=== PATIENT | male | born 1950 | race Caucasian/White ===

== ENCOUNTER 2017-12-14 13:25 | Inpatient (IN) ==
[2017-12-14 16:58] LABS: Basophils # 0.1 10*3/uL (0.0-0.2); Basophils % 0.7 % (0.0-0.8); Eosinophils # 0.6 10*3/uL (0.0-0.87); Eosinophils % 8.6 % (0.00-10.9); Hematocrit 38.8 VOL% (42.0-52.0); Hemoglobin 12.8 GM/DL (14.0-18.0); Immature Granulocytes % 0.1 %; Immature Granulocytes Absolute 0.01 #; Lymphocytes # 2.2 10*3/uL (1.4-4.0); Mean Corpuscular Hemoglobin 31 PG (27-34); Mean Corpuscular Volume 95.1 FL (87-102); Mean Platelet Volume 10.8 FL (9.6-12.0); Monocytes # 0.8 10*3/uL (0.11-0.8); Monocytes % 12.1 % (1.7-12.7); Neutrophils # 3.2 10*3/uL (1.4-7.4); Neutrophils % 46.5 % (38.7-73.9); Platelet Count 195 T/CUMM (130-400); Red Blood Count 4.08 MC/CUMM (3.8-5.5); Red Cell Distribution Width 13.5 % (9.3-17.3); White Blood Count 6.9 T/CUMM (4-12)
[2017-12-14 17:25] LABS: Albumin 3.1 G/DL (3.4-5.0); Bilirubin,Total 0.6 MG/DL (0.2-1.0); Calcium 7.5 MG/DL (8.5-10.1); Osmolality,Calculated 284.1 MOS/KG (273-304); Potassium 3.8 MMOL/L (3.5-5.1); Total Protein 6.9 G/DL (6.4-8.3)
[2017-12-14 17:46] LABS: PT Patient Result 10.7 SECS; Partial Thromboplastin Time 25.9 SECS (0-40)
[2017-12-14] MEDS ORDERED: POT IV SCH (18:30)
[2017-12-14] MEDS ORDERED: [UNRECOGNIZED DRUG - OTHER] IV SCH (18:30)
[2017-12-14] MEDS: PANTOPRAZOLE 40 MG VIAL IV SCH (20:39)
[2017-12-14] MEDS: ATORVASTATIN 20 MG TABLET PO SCH (20:39)
[2017-12-14] MEDS: LINEZOLID 600 MG TABLET PO SCH (20:39)
[2017-12-14] MEDS: POTASSIUM CHLORIDE 20 MEQ TABLET PO SCH (20:39)
[2017-12-14] MEDS: PENICILLIN G POTASSIUM INJ 2,000,000 UNIT in SODIUM CHLORIDE 0.9% 100 ML IV SCH (20:40)
[2017-12-14] MEDS ORDERED: DONEPEZIL 5 MG TABLET PO SCH (21:00)
[2017-12-14 21:11] LABS: Hematocrit 36.5 VOL% (42.0-52.0)
[2017-12-15] MEDS: PENICILLIN G POTASSIUM INJ 2,000,000 UNIT in SODIUM CHLORIDE 0.9% 100 ML IV SCH ×6 (00:59→21:55)
[2017-12-15 01:40] LABS: Basophils # 0.1 10*3/uL (0.0-0.2); Basophils % 0.9 % (0.0-0.8); Eosinophils # 0.5 10*3/uL (0.0-0.87); Eosinophils % 8.8 % (0.00-10.9); Hematocrit 34.7 VOL% (42.0-52.0); Hemoglobin 11.5 GM/DL (14.0-18.0); Immature Granulocytes % 0.2 %; Immature Granulocytes Absolute 0.01 #; Lymphocytes # 1.9 10*3/uL (1.4-4.0); Lymphocytes % 33.3 % (21.2-54.2); Mean Corpuscular HGB Conc 33.1 GM/DL (32-36); Mean Corpuscular Hemoglobin 31 PG (27-34); Mean Corpuscular Volume 94.3 FL (87-102); Mean Platelet Volume 10.5 FL (9.6-12.0); Monocytes # 0.7 10*3/uL (0.11-0.8); Monocytes % 12.3 % (1.7-12.7); Neutrophils # 2.6 10*3/uL (1.4-7.4); Neutrophils % 44.5 % (38.7-73.9); Platelet Count 167 T/CUMM (130-400); Red Blood Count 3.68 MC/CUMM (3.8-5.5); Red Cell Distribution Width 13.5 % (9.3-17.3); White Blood Count 5.7 T/CUMM (4-12)
[2017-12-15 01:41] LABS: Hematocrit 34.5 VOL% (42.0-52.0); Hemoglobin 11.4 GM/DL (14.0-18.0)
[2017-12-15 02:03] LABS: Albumin 2.8 G/DL (3.4-5.0); Bilirubin,Total 0.6 MG/DL (0.2-1.0); Calcium 8.5 MG/DL (8.5-10.1); Osmolality,Calculated 283.1 MOS/KG (273-304); Potassium 3.8 MMOL/L (3.5-5.1)
[2017-12-15 07:51] LABS: Hematocrit 36.9 VOL% (42.0-52.0); Hemoglobin 11.9 GM/DL (14.0-18.0)
[2017-12-15] MEDS: LINEZOLID 600 MG TABLET PO SCH ×2 (10:03→21:55)
[2017-12-15] MEDS: METOPROLOL SUCCINATE XL 25 MG TABLET PO SCH (10:03)
[2017-12-15] MEDS: POTASSIUM CHLORIDE 20 MEQ TABLET PO SCH ×2 (10:04→21:55)
[2017-12-15] MEDS: LOSARTAN 50 MG TABLET PO SCH (10:05)
[2017-12-15] MEDS: FUROSEMIDE 40 MG TABLET PO SCH ×2 (10:06→17:19)
[2017-12-15] MEDS: DILTIAZEM CD 240 MG CAPSULE PO SCH (10:12)
[2017-12-15] MEDS: PANTOPRAZOLE 40 MG VIAL IV SCH ×2 (10:12→21:54)
[2017-12-15] MEDS: PREGABALIN 100 MG CAPSULE PO SCH ×2 (13:00→21:55)
[2017-12-15 13:44] LABS: Hematocrit 36.5 VOL% (42.0-52.0)
[2017-12-15 20:02] LABS: Hematocrit 34.8 VOL% (42.0-52.0); Hemoglobin 11.6 GM/DL (14.0-18.0)
[2017-12-15] MEDS: DONEPEZIL 5 MG TABLET PO SCH (21:55)
[2017-12-15] MEDS: ATORVASTATIN 20 MG TABLET PO SCH (21:55)
[2017-12-16] MEDS: PENICILLIN G POTASSIUM INJ 2,000,000 UNIT in SODIUM CHLORIDE 0.9% 100 ML IV SCH ×7 (01:39→21:34)
[2017-12-16 01:54] LABS: Hematocrit 33.9 VOL% (42.0-52.0); Hemoglobin 11.2 GM/DL (14.0-18.0)
[2017-12-16 03:33] LABS: Calcium 8.3 MG/DL (8.5-10.1)
[2017-12-16 03:34] LABS: Albumin 2.8 G/DL (3.4-5.0); Bilirubin,Total 0.5 MG/DL (0.2-1.0); Osmolality,Calculated 285.1 MOS/KG (273-304); Potassium 3.8 MMOL/L (3.5-5.1); Total Protein 5.9 G/DL (6.4-8.3)
[2017-12-16 05:46] LABS: Basophils # 0.1 10*3/uL (0.0-0.2); Basophils % 0.9 % (0.0-0.8); Eosinophils # 0.4 10*3/uL (0.0-0.87); Eosinophils % 7.4 % (0.00-10.9); Hematocrit 36.6 VOL% (42.0-52.0); Hemoglobin 11.5 GM/DL (14.0-18.0); Immature Granulocytes % 0.2 %; Immature Granulocytes Absolute 0.01 #; Lymphocytes # 1.4 10*3/uL (1.4-4.0); Lymphocytes % 24.6 % (21.2-54.2); Mean Corpuscular HGB Conc 31.4 GM/DL (32-36); Mean Corpuscular Hemoglobin 30 PG (27-34); Mean Corpuscular Volume 95.3 FL (87-102); Mean Platelet Volume 10.9 FL (9.6-12.0); Monocytes # 0.6 10*3/uL (0.11-0.8); Neutrophils # 3.2 10*3/uL (1.4-7.4); Neutrophils % 55.9 % (38.7-73.9); Platelet Count 176 T/CUMM (130-400); Red Blood Count 3.84 MC/CUMM (3.8-5.5); Red Cell Distribution Width 13.3 % (9.3-17.3); White Blood Count 5.7 T/CUMM (4-12)
[2017-12-16] MEDS ORDERED: PROPOFOL 200 MG/20 ML VIAL IV ONE (10:00)
[2017-12-16] MEDS ORDERED: LIDOCAINE 100 MG/5 ML SYRINGE ONE (10:00)
[2017-12-16] MEDS: DILTIAZEM CD 240 MG CAPSULE PO SCH (11:23)
[2017-12-16] MEDS: METOPROLOL SUCCINATE XL 25 MG TABLET PO SCH (11:23)
[2017-12-16] MEDS: PANTOPRAZOLE 40 MG VIAL IV SCH ×2 (11:24→21:30)
[2017-12-16] MEDS: LINEZOLID 600 MG TABLET PO SCH ×2 (11:25→21:51)
[2017-12-16] MEDS: POTASSIUM CHLORIDE 20 MEQ TABLET PO SCH ×2 (11:25→21:28)
[2017-12-16] MEDS: PREGABALIN 100 MG CAPSULE PO SCH ×2 (11:25→21:28)
[2017-12-16] MEDS: LOSARTAN 50 MG TABLET PO SCH (11:25)
[2017-12-16] MEDS: FUROSEMIDE 40 MG TABLET PO SCH ×2 (11:25→15:37)
[2017-12-16] MEDS ORDERED: BISACODYL 5 MG TABLET PO ONE (12:00)
[2017-12-16] MEDS ORDERED: POLYETHYLENE GLYCOL POWDER 255 GM BOTTLE PO ONE (18:00)
[2017-12-16] MEDS: ATORVASTATIN 20 MG TABLET PO SCH (21:28)
[2017-12-16] MEDS: DONEPEZIL 5 MG TABLET PO SCH (21:28)
[2017-12-17] MEDS: PENICILLIN G POTASSIUM INJ 2,000,000 UNIT in SODIUM CHLORIDE 0.9% 100 ML IV SCH ×6 (01:20→20:52)
[2017-12-17 05:49] LABS: Basophils % 0.7 % (0.0-0.8); Eosinophils # 0.4 10*3/uL (0.0-0.87); Eosinophils % 6.2 % (0.00-10.9); Hematocrit 37.9 VOL% (42.0-52.0); Hemoglobin 11.8 GM/DL (14.0-18.0); Immature Granulocytes % 0.2 %; Immature Granulocytes Absolute 0.01 #; Lymphocytes # 1.5 10*3/uL (1.4-4.0); Mean Corpuscular HGB Conc 31.1 GM/DL (32-36); Mean Corpuscular Hemoglobin 30 PG (27-34); Mean Corpuscular Volume 95.2 FL (87-102); Mean Platelet Volume 10.9 FL (9.6-12.0); Monocytes # 0.6 10*3/uL (0.11-0.8); Monocytes % 10.5 % (1.7-12.7); Neutrophils # 3.1 10*3/uL (1.4-7.4); Neutrophils % 55.4 % (38.7-73.9); Platelet Count 164 T/CUMM (130-400); Red Blood Count 3.98 MC/CUMM (3.8-5.5); Red Cell Distribution Width 13.3 % (9.3-17.3); White Blood Count 5.6 T/CUMM (4-12)
[2017-12-17 06:08] LABS: Bilirubin,Total 0.7 MG/DL (0.2-1.0); Calcium 8.9 MG/DL (8.5-10.1); Osmolality,Calculated 284.1 MOS/KG (273-304); Potassium 4.4 MMOL/L (3.5-5.1); Total Protein 6.6 G/DL (6.4-8.3)
[2017-12-17] MEDS ORDERED: LIDOCAINE 100 MG/5 ML SYRINGE ONE (08:00)
[2017-12-17] MEDS ORDERED: PROPOFOL 200 MG/20 ML VIAL IV ONE (08:00)
[2017-12-17] MEDS ORDERED: MAGNESIUM CITRATE 300 ML BOTTLE PO ONE (12:32)
[2017-12-17] MEDS: PANTOPRAZOLE 40 MG VIAL IV SCH ×2 (13:24→20:50)
[2017-12-17] MEDS: DILTIAZEM CD 240 MG CAPSULE PO SCH (13:25)
[2017-12-17] MEDS: PREGABALIN 100 MG CAPSULE PO SCH ×2 (13:25→20:49)
[2017-12-17] MEDS: POTASSIUM CHLORIDE 20 MEQ TABLET PO SCH ×2 (13:26→20:50)
[2017-12-17] MEDS: METOPROLOL SUCCINATE XL 25 MG TABLET PO SCH (13:26)
[2017-12-17] MEDS: FUROSEMIDE 40 MG TABLET PO SCH ×2 (13:26→18:13)
[2017-12-17] MEDS: LOSARTAN 50 MG TABLET PO SCH (13:26)
[2017-12-17] MEDS: LINEZOLID 600 MG TABLET PO SCH ×2 (13:29→20:50)
[2017-12-17] MEDS: ATORVASTATIN 20 MG TABLET PO SCH (20:49)
[2017-12-17] MEDS: DONEPEZIL 5 MG TABLET PO SCH (20:50)
[2017-12-18] MEDS: PENICILLIN G POTASSIUM INJ 2,000,000 UNIT in SODIUM CHLORIDE 0.9% 100 ML IV SCH ×4 (01:17→12:31)
[2017-12-18] MEDS: POTASSIUM CHLORIDE 20 MEQ TABLET PO SCH (09:12)
[2017-12-18] MEDS: FUROSEMIDE 40 MG TABLET PO SCH ×2 (09:12→15:15)
[2017-12-18] MEDS: DILTIAZEM CD 240 MG CAPSULE PO SCH (09:12)
[2017-12-18] MEDS: LOSARTAN 50 MG TABLET PO SCH (09:12)
[2017-12-18] MEDS: PREGABALIN 100 MG CAPSULE PO SCH (09:12)
[2017-12-18] MEDS: LINEZOLID 600 MG TABLET PO SCH (09:13)
[2017-12-18] MEDS: METOPROLOL SUCCINATE XL 25 MG TABLET PO SCH (09:13)
[2017-12-18] MEDS: PANTOPRAZOLE 40 MG VIAL IV SCH (09:15)
[2017-12-18 11:31] VITALS: BP 100/60
== END 2017-12-18 15:35 | disposition home health service (06) | DRG 378 ==
LOC: N.ED 13:25 → N.EDINP 17:19 → SUATTDRO 17:19 → N.5E 18:15 → N.TELEN 22:49
PROVIDERS: ADMIT Internal Medicine; ATTEND Hospitalist

== ENCOUNTER 2019-07-29 12:47 | Observation (INO) ==
[2019-07-29 13:29] LABS: Basophils # 0.1 10*3/uL (0.0-0.2); Eosinophils # 0.4 10*3/uL (0.0-0.87); Eosinophils % 6.1 % (0.00-10.9); Hematocrit 45.2 VOL% (42.0-52.0); Hemoglobin 14.9 GM/DL (14.0-18.0); Immature Granulocytes % 0.2 %; Immature Granulocytes Absolute 0.01 #; Lymphocytes # 1.4 10*3/uL (1.4-4.0); Lymphocytes % 23.5 % (21.2-54.2); Mean Platelet Volume 10.4 FL (9.6-12.0); Monocytes % 13.7 % (1.7-12.7); Neutrophils % 55.5 % (38.7-73.9); Platelet Count 194 T/CUMM (130-400); Red Blood Count 4.81 MC/CUMM (3.8-5.5); Red Cell Distribution Width 13.1 % (9.3-17.3); White Blood Count 5.9 T/CUMM (4-12)
[2019-07-29 13:41] LABS: PT Patient Result 10.3 SECS (9.8-11.9)
[2019-07-29 13:43] LABS: Albumin 3.6 G/DL (3.4-5.0); Bilirubin,Total 0.6 MG/DL (0.2-1.0); Total Protein 7.1 G/DL (6.4-8.3)
[2019-07-29] MEDS ORDERED: ONDANSETRON 4 MG/2 ML VIAL IV PRN (15:10)
[2019-07-29] MEDS ORDERED: hydrALAZINE 20 MG/1 ML VIAL IV PRN (15:10)
[2019-07-29] MEDS ORDERED: GLUCAGON 1 MG VIAL IM PRN (15:10)
[2019-07-29] MEDS ORDERED: ACETAMINOPHEN 325 MG TABLET PO PRN (15:10)
[2019-07-29] MEDS ORDERED: DOCUSATE SODIUM 100 MG CAPSULE PO PRN (15:10)
[2019-07-29] MEDS ORDERED: DEXTROSE 50% 25 GM/50 ML VIAL IV PRN (15:10)
[2019-07-29] MEDS ORDERED: ENOXAPARIN 40 MG/0.4 ML SYRINGE SUBCUT SCH (15:30)
[2019-07-29 16:11] LABS: Risk Ratio 3.45; Thyroid Stimulating Hormone 3.87 uIU/ml (0.358-3.74); VLDL CHOLESTEROL 36.2 MG/DL
[2019-07-29] MEDS: PREGABALIN 100 MG CAPSULE PO SCH (20:52)
[2019-07-29] MEDS ORDERED: ATORVASTATIN 20 MG TABLET PO SCH (21:00)
[2019-07-29] MEDS ORDERED: DONEPEZIL 10 MG TABLET PO SCH (21:00)
[2019-07-30 05:22] LABS: Basophils # 0.1 10*3/uL (0.0-0.2); Basophils % 0.9 % (0.0-0.8); Eosinophils # 0.4 10*3/uL (0.0-0.87); Hematocrit 42.5 VOL% (42.0-52.0); Hemoglobin 13.9 GM/DL (14.0-18.0); Immature Granulocytes % 0.2 %; Immature Granulocytes Absolute 0.01 #; Lymphocytes # 1.7 10*3/uL (1.4-4.0); Lymphocytes % 27.2 % (21.2-54.2); Mean Corpuscular HGB Conc 32.7 GM/DL (32-36); Mean Corpuscular Volume 93.8 FL (87-102); Mean Platelet Volume 10.7 FL (9.6-12.0); Monocytes % 12.9 % (1.7-12.7); Neutrophils % 52.8 % (38.7-73.9); Platelet Count 188 T/CUMM (130-400); Red Blood Count 4.53 MC/CUMM (3.8-5.5); Red Cell Distribution Width 13.2 % (9.3-17.3); White Blood Count 6.4 T/CUMM (4-12)
[2019-07-30 06:05] LABS: Osmolality,Calculated 275.7 MOS/KG (273-304)
[2019-07-30] MEDS ORDERED: DILTIAZEM CD 180 MG CAPSULE PO SCH (09:00)
[2019-07-30] MEDS ORDERED: LOSARTAN 50 MG TABLET PO SCH (09:00)
[2019-07-30] MEDS: PREGABALIN 100 MG CAPSULE PO SCH (09:12)
[2019-07-30 12:10] VITALS: BP 116/51
== END 2019-07-30 14:10 | disposition home or self-care (01) ==
LOC: EDUNIT# → N.ED 12:47 → N.EDINP 12:47 → N.TELES 15:45
PROVIDERS: ADMIT Internal Medicine; ATTEND Internal Medicine

== ENCOUNTER 2020-01-20 15:36 | Observation (INO) ==
[2020-01-20] MEDS ORDERED: SODIUM CHLORIDE 0.9% 1,000 ML IV STA (16:12)
[2020-01-20 16:40] LABS: Basophils # 0.1 10*3/uL (0.0-0.2); Basophils % 0.6 % (0.0-0.8); Eosinophils # 0.5 10*3/uL (0.0-0.87); Eosinophils % 4.6 % (0.00-10.9); Hematocrit 35.6 VOL% (42.0-52.0); Hemoglobin 11.8 GM/DL (14.0-18.0); Immature Granulocytes % 0.4 %; Immature Granulocytes Absolute 0.04 #; Lymphocytes # 2.4 10*3/uL (1.4-4.0); Lymphocytes % 21.9 % (21.2-54.2); Mean Corpuscular HGB Conc 33.1 GM/DL (32-36); Mean Corpuscular Volume 94.9 FL (87-102); Mean Platelet Volume 10.3 FL (9.6-12.0); Monocytes % 9.9 % (1.7-12.7); Neutrophils % 62.6 % (38.7-73.9); Platelet Count 197 T/CUMM (130-400); Red Blood Count 3.75 MC/CUMM (3.8-5.5); Red Cell Distribution Width 13.5 % (9.3-17.3); White Blood Count 10.8 T/CUMM (4-12)
[2020-01-20 16:51] LABS: PT Patient Result 10.5 SECS (9.8-11.9); Partial Thromboplastin Time 26.1 SECS (23.9-33.8)
[2020-01-20 17:06] LABS: Albumin 3.2 G/DL (3.4-5.0); Bilirubin,Total 0.5 MG/DL (0.2-1.0); Calcium 8.9 MG/DL (8.5-10.1); Osmolality,Calculated 286.8 MOS/KG (273-304); Total Protein 6.7 G/DL (6.4-8.3)
[2020-01-20] MEDS ORDERED: DEXTROSE 50% 25 GM/50 ML VIAL IV PRN (20:38)
[2020-01-20] MEDS ORDERED: GLUCAGON 1 MG VIAL IM PRN (20:38)
[2020-01-20 20:56] LABS: Hematocrit 35.4 VOL% (42.0-52.0); Hemoglobin 11.8 GM/DL (14.0-18.0)
[2020-01-20] MEDS ORDERED: DEXTROSE 50% 25 GM/50 ML SYRINGE IV PRN (21:00)
[2020-01-20] MEDS: PANTOPRAZOLE 40 MG VIAL IV SCH (21:29)
[2020-01-21 01:44] LABS: Bilirubin,Urine Negative (Negative); Blood, Urine Negative (Negative); Glucose,Urine (UA) Negative (Negative); Ketones,Urine Negative (Negative); Mucus,Urine Occasional /LPF (Occasional); Nitrite,Urine Negative (Negative); Protein,Urine Negative; RBC,Urine <1 /HPF (0-4); Urine Appearance CLEAR (Clear); Urine Color Yellow (Yellow); Urine Specific Gravity 1.014 (1.001-1.035); Urine Urobilinogen < 2.0 EU/DL (0.2-1.0); WBC,Urine <1 /HPF (0-6)
[2020-01-21 06:31] LABS: % Iron Saturation 18.4 % (18-50); Calcium 8.8 MG/DL (8.5-10.1); Osmolality,Calculated 277.4 MOS/KG (273-304)
[2020-01-21 07:34] LABS: Basophils % 0.5 % (0.0-0.8); Eosinophils # 0.4 10*3/uL (0.0-0.87); Eosinophils % 5.3 % (0.00-10.9); Hematocrit 45.9 VOL% (42.0-52.0); Immature Granulocytes % 0.3 %; Immature Granulocytes Absolute 0.02 #; Lymphocytes # 1.5 10*3/uL (1.4-4.0); Lymphocytes % 20.2 % (21.2-54.2); Mean Corpuscular HGB Conc 32.7 GM/DL (32-36); Mean Corpuscular Volume 97.5 FL (87-102); Mean Platelet Volume 11.4 FL (9.6-12.0); Monocytes % 11.1 % (1.7-12.7); Neutrophils % 62.6 % (38.7-73.9); Platelet Count 111 T/CUMM (130-400); Red Blood Count 4.71 MC/CUMM (3.8-5.5); Red Cell Distribution Width 13.7 % (9.3-17.3); White Blood Count 7.5 T/CUMM (4-12)
[2020-01-21 07:40] VITALS: BP 127/50
[2020-01-21] MEDS ORDERED: SODIUM POLYSTYRENE SULFATE 15 GM/60 ML BOTTLE PO ONE (08:52)
[2020-01-21] MEDS ORDERED: SODIUM POLYSTYRENE SULFATE 15 GM/60 ML BOTTLE PO STA (08:56)
[2020-01-21] MEDS: PANTOPRAZOLE 40 MG VIAL IV SCH (09:03)
== END 2020-01-21 11:10 | disposition home or self-care (01) ==
LOC: EDBD → EDUNIT# → N.EDINP 15:36 → N.ED 15:36 → N.3E 22:02
PROVIDERS: ADMIT Family Medicine; ATTEND Family Medicine

== ENCOUNTER 2020-01-30 16:11 | Inpatient (IN) ==
[2020-01-30] MEDS ORDERED: FUROSEMIDE 40 MG/4 ML VIAL IV STA (18:53)
[2020-01-30 19:28] LABS: Basophils # 0.1 10*3/uL (0.0-0.2); Basophils % 0.6 % (0.0-0.8); Eosinophils # 0.6 10*3/uL (0.0-0.87); Eosinophils % 5.7 % (0.00-10.9); Hematocrit 36.4 VOL% (42.0-52.0); Hemoglobin 12.1 GM/DL (14.0-18.0); Immature Granulocytes % 0.4 %; Immature Granulocytes Absolute 0.04 #; Lymphocytes # 1.9 10*3/uL (1.4-4.0); Lymphocytes % 18.4 % (21.2-54.2); Mean Corpuscular HGB Conc 33.2 GM/DL (32-36); Mean Corpuscular Volume 94.1 FL (87-102); Mean Platelet Volume 10.3 FL (9.6-12.0); Monocytes % 9.9 % (1.7-12.7); Platelet Count 207 T/CUMM (130-400); Red Blood Count 3.87 MC/CUMM (3.8-5.5); Red Cell Distribution Width 13.8 % (9.3-17.3); White Blood Count 10.1 T/CUMM (4-12)
[2020-01-30 19:48] LABS: Alanine Aminotransferase 48 U/L (16-61); Albumin 3.2 G/DL (3.4-5.0); Alkaline Phosphatase 62 U/L (45-117); Aspartate Amino Transferase 14 U/L (0-37); Bilirubin,Total < 0.39 MG/DL (0.2-1.0); Blood Urea Nitrogen 17 MG/DL (7-18); Calcium 8.5 MG/DL (8.5-10.1); Estimated Glom Filtration Rate 133 ML/MIN; Glucose 110 MG/DL (74-106); Osmolality,Calculated 272.1 MOS/KG (273-304); Total Protein 6.5 G/DL (6.4-8.3)
[2020-01-30 19:51] LABS: PT Patient Result 10.8 SECS (9.8-11.9)
[2020-01-30 19:56] LABS: Ferritin 11.2 ng/ml (26-388)
[2020-01-30] MEDS ORDERED: ENOXAPARIN 30 MG/0.3 ML SYRINGE SUBCUT STA (20:37)
[2020-01-30] MEDS ORDERED: ENOXAPARIN 120 MG/0.8 ML SYRINGE SUBCUT ONE (20:43)
[2020-01-30] MEDS ORDERED: ONDANSETRON 4 MG/2 ML VIAL IV PRN (22:59)
[2020-01-30] MEDS ORDERED: ACETAMINOPHEN 325 MG TABLET PO PRN (22:59)
[2020-01-30] MEDS ORDERED: DEXTROSE 50% 25 GM/50 ML VIAL IV PRN (22:59)
[2020-01-30] MEDS ORDERED: GLUCAGON 1 MG VIAL IM PRN (22:59)
[2020-01-30] MEDS ORDERED: AZITHROMYCIN INJ 500 MG in SODIUM CHLORIDE 0.9% 250 ML IV SCH (23:30)
[2020-01-31] MEDS: cefTRIAXone 1,000 MG in SYRINGE 1 EACH IV SCH (00:37)
[2020-01-31] MEDS ORDERED: ALBUTEROL/IPRATROPIUM 3 ML NEB RESP TX PRN (01:33)
[2020-01-31 04:52] LABS: Basophils # 0.1 10*3/uL (0.0-0.2); Basophils % 0.9 % (0.0-0.8); Eosinophils # 0.5 10*3/uL (0.0-0.87); Eosinophils % 5.8 % (0.00-10.9); Hematocrit 32.8 VOL% (42.0-52.0); Immature Granulocytes % 0.5 %; Immature Granulocytes Absolute 0.04 #; Lymphocytes # 1.7 10*3/uL (1.4-4.0); Lymphocytes % 19.4 % (21.2-54.2); Mean Corpuscular HGB Conc 33.5 GM/DL (32-36); Mean Platelet Volume 10.8 FL (9.6-12.0); Monocytes % 14.1 % (1.7-12.7); Neutrophils % 59.3 % (38.7-73.9); Platelet Count 204 T/CUMM (130-400); Red Blood Count 3.49 MC/CUMM (3.8-5.5); White Blood Count 8.8 T/CUMM (4-12)
[2020-01-31 05:04] LABS: Albumin 3.1 G/DL (3.4-5.0); Bilirubin,Total 0.5 MG/DL (0.2-1.0); Calcium 8.7 MG/DL (8.5-10.1); Osmolality,Calculated 286.1 MOS/KG (273-304); Total Protein 6.6 G/DL (6.4-8.3)
[2020-01-31] MEDS: ENOXAPARIN 120 MG/0.8 ML SYRINGE SUBCUT SCH ×2 (10:12→21:06)
[2020-01-31] MEDS ORDERED: SODIUM CHLORIDE 0.9% 1,000 ML IV ONE (11:00)
[2020-01-31] MEDS: DILTIAZEM CD 180 MG CAPSULE PO SCH (11:11)
[2020-01-31] MEDS: PREGABALIN 100 MG CAPSULE PO SCH ×2 (11:11→21:05)
[2020-01-31] MEDS ORDERED: SODIUM CHLORIDE 0.9% 1,000 ML IV SCH (16:30)
[2020-01-31] MEDS: ATORVASTATIN 20 MG TABLET PO SCH (21:06)
[2020-01-31] MEDS: DONEPEZIL 10 MG TABLET PO SCH (21:06)
[2020-02-01 05:29] LABS: Basophils # 0.1 10*3/uL (0.0-0.2); Basophils % 0.8 % (0.0-0.8); Eosinophils # 0.4 10*3/uL (0.0-0.87); Eosinophils % 6.1 % (0.00-10.9); Hematocrit 33.8 VOL% (42.0-52.0); Immature Granulocytes % 0.6 %; Immature Granulocytes Absolute 0.04 #; Lymphocytes # 1.7 10*3/uL (1.4-4.0); Lymphocytes % 23.6 % (21.2-54.2); Mean Corpuscular HGB Conc 32.5 GM/DL (32-36); Mean Corpuscular Volume 95.5 FL (87-102); Mean Platelet Volume 9.7 FL (9.6-12.0); Monocytes % 12.4 % (1.7-12.7); Neutrophils % 56.5 % (38.7-73.9); Platelet Count 184 T/CUMM (130-400); Red Blood Count 3.54 MC/CUMM (3.8-5.5); Red Cell Distribution Width 13.9 % (9.3-17.3); White Blood Count 7.1 T/CUMM (4-12)
[2020-02-01 05:48] LABS: Calcium 8.8 MG/DL (8.5-10.1); Osmolality,Calculated 289.1 MOS/KG (273-304)
[2020-02-01 05:53] LABS: Albumin 3.1 G/DL (3.4-5.0); Bilirubin,Total 0.5 MG/DL (0.2-1.0); Calcium 8.9 MG/DL (8.5-10.1); Total Protein 6.9 G/DL (6.4-8.3)
[2020-02-01] MEDS: DILTIAZEM CD 180 MG CAPSULE PO SCH (09:14)
[2020-02-01] MEDS: PREGABALIN 100 MG CAPSULE PO SCH ×2 (09:14→23:03)
[2020-02-01] MEDS: ENOXAPARIN 120 MG/0.8 ML SYRINGE SUBCUT SCH ×2 (09:15→23:03)
[2020-02-01] MEDS: cefTRIAXone 1,000 MG in SYRINGE 1 EACH IV SCH (09:15)
[2020-02-01] MEDS: AZITHROMYCIN 250 MG TABLET PO SCH (09:15)
[2020-02-01] MEDS ORDERED: POLYETHYLENE GLYCOL POWDER 255 GM BOTTLE PO ONE (13:00)
[2020-02-01] MEDS ORDERED: MAGNESIUM CITRATE 300 ML BOTTLE PO ONE (21:00)
[2020-02-01] MEDS: DONEPEZIL 10 MG TABLET PO SCH (23:03)
[2020-02-01] MEDS: ATORVASTATIN 20 MG TABLET PO SCH (23:03)
[2020-02-02 05:38] LABS: Basophils # 0.1 10*3/uL (0.0-0.2); Eosinophils # 0.3 10*3/uL (0.0-0.87); Eosinophils % 5.4 % (0.00-10.9); Hematocrit 33.9 VOL% (42.0-52.0); Hemoglobin 11.1 GM/DL (14.0-18.0); Immature Granulocytes % 0.3 %; Immature Granulocytes Absolute 0.02 #; Lymphocytes # 1.3 10*3/uL (1.4-4.0); Lymphocytes % 21.6 % (21.2-54.2); Mean Corpuscular HGB Conc 32.7 GM/DL (32-36); Mean Platelet Volume 10.6 FL (9.6-12.0); Neutrophils % 60.7 % (38.7-73.9); Platelet Count 189 T/CUMM (130-400); Red Blood Count 3.53 MC/CUMM (3.8-5.5); Red Cell Distribution Width 13.6 % (9.3-17.3); White Blood Count 6.1 T/CUMM (4-12)
[2020-02-02 05:48] LABS: PT Patient Result 11.1 SECS (9.8-11.9)
[2020-02-02 05:51] LABS: Calcium 8.6 MG/DL (8.5-10.1); Osmolality,Calculated 277.5 MOS/KG (273-304)
[2020-02-02] MEDS ORDERED: LACTATED RINGERS 1,000 ML IV SCH (08:00)
[2020-02-02] MEDS ORDERED: ETOMIDATE 20 MG/10 ML VIAL IV ONE (10:34)
[2020-02-02] MEDS ORDERED: LIDOCAINE 2% 5 ML VIAL ONE (10:34)
[2020-02-02] MEDS ORDERED: propofoL 200 MG/20 ML VIAL IV ONE (10:34)
[2020-02-02] MEDS: DILTIAZEM CD 180 MG CAPSULE PO SCH (11:48)
[2020-02-02] MEDS: PREGABALIN 100 MG CAPSULE PO SCH ×2 (11:48→20:40)
[2020-02-02] MEDS: ENOXAPARIN 120 MG/0.8 ML SYRINGE SUBCUT SCH ×2 (11:48→20:41)
[2020-02-02] MEDS: cefTRIAXone 1,000 MG in SYRINGE 1 EACH IV SCH (11:49)
[2020-02-02] MEDS: AZITHROMYCIN 250 MG TABLET PO SCH (11:49)
[2020-02-02] MEDS: ATORVASTATIN 20 MG TABLET PO SCH (20:40)
[2020-02-02] MEDS: DONEPEZIL 10 MG TABLET PO SCH (20:40)
[2020-02-03] MEDS: DILTIAZEM CD 180 MG CAPSULE PO SCH (09:26)
[2020-02-03] MEDS: cefTRIAXone 1,000 MG in SYRINGE 1 EACH IV SCH (09:27)
[2020-02-03] MEDS ORDERED: LIDOCAINE 2% 5 ML VIAL ONE ×2 (09:58→09:59)
[2020-02-03] MEDS ORDERED: ETOMIDATE 20 MG/10 ML VIAL IV ONE (09:59)
[2020-02-03] MEDS ORDERED: propofoL 200 MG/20 ML VIAL IV ONE (09:59)
[2020-02-03] MEDS ORDERED: PHENYLEPHRINE 1 MG/10 ML SYRINGE IV ONE (10:25)
[2020-02-03] MEDS: ENOXAPARIN 120 MG/0.8 ML SYRINGE SUBCUT SCH (11:08)
[2020-02-03] MEDS: AZITHROMYCIN 250 MG TABLET PO SCH (11:37)
[2020-02-03] MEDS: PREGABALIN 100 MG CAPSULE PO SCH ×2 (11:37→20:50)
[2020-02-03] MEDS: RIVAROXABAN 15 MG TABLET PO SCH (16:20)
[2020-02-03] MEDS: DONEPEZIL 10 MG TABLET PO SCH (20:50)
[2020-02-03] MEDS: ATORVASTATIN 20 MG TABLET PO SCH (20:50)
[2020-02-04 05:45] LABS: Basophils % 0.7 % (0.0-0.8); Eosinophils # 0.3 10*3/uL (0.0-0.87); Eosinophils % 5.4 % (0.00-10.9); Hematocrit 35.4 VOL% (42.0-52.0); Hemoglobin 11.2 GM/DL (14.0-18.0); Immature Granulocytes % 0.3 %; Immature Granulocytes Absolute 0.02 #; Lymphocytes # 1.2 10*3/uL (1.4-4.0); Lymphocytes % 20.4 % (21.2-54.2); Mean Corpuscular HGB Conc 31.6 GM/DL (32-36); Mean Corpuscular Volume 96.7 FL (87-102); Mean Platelet Volume 10.3 FL (9.6-12.0); Monocytes % 10.2 % (1.7-12.7); Platelet Count 193 T/CUMM (130-400); Red Blood Count 3.66 MC/CUMM (3.8-5.5); Red Cell Distribution Width 13.6 % (9.3-17.3); White Blood Count 5.8 T/CUMM (4-12)
[2020-02-04 06:08] LABS: Calcium 8.7 MG/DL (8.5-10.1); Osmolality,Calculated 282.3 MOS/KG (273-304)
[2020-02-04] MEDS: DILTIAZEM CD 180 MG CAPSULE PO SCH (09:33)
[2020-02-04] MEDS: PREGABALIN 100 MG CAPSULE PO SCH (09:33)
[2020-02-04] MEDS: AZITHROMYCIN 250 MG TABLET PO SCH (09:33)
[2020-02-04] MEDS: cefTRIAXone 1,000 MG in SYRINGE 1 EACH IV SCH (09:34)
[2020-02-04] MEDS: RIVAROXABAN 15 MG TABLET PO SCH (09:34)
[2020-02-04 12:27] VITALS: BP 117/50
[2020-02-06] MEDS ORDERED: ERGOCALCIFEROL 50,000 UNIT CAPSULE PO SCH (09:00)
== END 2020-02-04 14:09 | disposition home or self-care (01) | DRG 175 ==
LOC: N.ED 16:11 → N.EDINP 21:57 → N.5E 01-31 08:56
PROVIDERS: ADMIT Internal Medicine; ATTEND Internal Medicine